=== PATIENT | female | born 1965 | race African-American/Black ===

== ENCOUNTER 2017-04-07 19:32 | Emergency (ER) | payer SELFPAY | END 2017-04-07 20:13 | disposition left against medical advice (07) | LOC: ERS 19:32 | DX: Z53.21 Procedure and treatment not carried out due to patient leaving prior to being seen by health care provider (principal) ==

== ENCOUNTER 2019-03-20 18:53 | Emergency (ER) | payer SELFPAY ==
--- NOTE | 2019-03-20 19:58 | RAD ---
PA AND LATERAL CHEST: 03/20/19 HISTORY: Cough. COMPARISON: 02/27/15 study. The heart size is borderline. Aorta is tortuous. The lungs are clear of infiltrates. There are arthri tic changes of the spine. IMPRESSION: No active intrathoracic disease. POS: [facility]
== END 2019-03-20 20:33 | disposition home or self-care (01) ==
LOC: ERS 18:53
DX: J06.9 Acute upper respiratory infection, unspecified (principal); H65.91 Unspecified nonsuppurative otitis media, right ear; I10 Essential (primary) hypertension; E11.9 Type 2 diabetes mellitus without complications; Z87.891 Personal history of nicotine dependence; Z79.899 Other long term (current) drug therapy; Z79.84 Long term (current) use of oral hypoglycemic drugs; Z79.2 Long term (current) use of antibiotics
CPT/HCPCS: 71046; 94640; J7620

== ENCOUNTER 2021-09-23 22:32 | Emergency (ER) | payer SELFPAY ==
[2021-09-23] MEDS ORDERED: Meclizine HCl 25 MG TAB ONE (23:18)
[2021-09-23] MEDS ORDERED: Acetaminophen 500 MG TAB ONE (23:18)
[2021-09-23] MEDS ORDERED: Ketorolac Tromethamine 30 MG/ML VIAL ONE (23:47)
[2021-09-24] MEDS ORDERED: cloNIDine 0.1 MG TAB ONE
== END 2021-09-24 00:34 | disposition home or self-care (01) ==
LOC: ERS 22:32
DX: R42 Dizziness and giddiness (principal); R51.9 Headache, unspecified; I10 Essential (primary) hypertension; E11.9 Type 2 diabetes mellitus without complications; F17.210 Nicotine dependence, cigarettes, uncomplicated; Z79.899 Other long term (current) drug therapy; Z79.84 Long term (current) use of oral hypoglycemic drugs
CPT/HCPCS: 36416; 96372; 99284; J1885

== ENCOUNTER 2022-06-05 18:16 | Emergency (ER) | payer SELFPAY ==
[2022-06-05] MEDS ORDERED: cloNIDine 0.1 MG TAB ONE (19:13)
[2022-06-05 19:38] LABS: #Basophils 0.1 thou/uL (0.0-0.2); #Eosinphils 0.1 thou/uL (0.0-0.7); #Lymphocytes 2.6 thou/uL (1.20-3.40); #Monocytes 0.5 thou/uL (0.11-0.59); %Basophils 0.8 % (0.0-1.0); %Eosinophils 1.3 % (0.0-10.0); %Monocytes 4.5 % (0.0-10.0); %Neutrophils 68.3 % (42.0-75.0); Hemoglobin 13.3 g/dL (12.0-16.0); Mean Corpuscular HGB CONC 33.1 g/dL (32.0-36.0); Mean Corpuscular Hemoglobin 30.1 pg (27.0-31.0); Mean Corpuscular Volume 90.9 fl (78.0-98.0); Mean Platelet Volume 8.5 fL (7.4-10.4); Platelet Count 240 10x3/uL (130-400); RBC Distribution Width 13.7 % (11.5-14.5); Red Blood Cell (RBC) Count 4.43 mill/uL (4.20-5.40); White Blood Cell (WBC) Count 10.2 10x3/uL (4.8-10.8)
[2022-06-05 19:59] LABS: ALT (SGPT) 9 U/L (8-55); AST (SGOT) 11 U/L (5-34); Albumin 4.2 g/dL (3.5-5.0); Alkaline Phosphatase 95 U/L (40-110); Anion Gap 14 mmol/L (10-20); BUN (Urea Nitrogen) 21 mg/dL (9.8-20.1); Bilirubin, Total 0.2 mg/dL (0.2-1.2); Calc. Creatinine Clearance 0 mL/min (70-130); Calcium 9.2 mg/dL (7.8-10.44); Carbon Dioxide 26 mmol/L (22-29); Chloride 100 mmol/L (98-107); Estimated GFR 67; Globulin 3.6 g/dL (2.4-3.5); Glucose 86 mg/dL (70-105); Potassium 3.6 mmol/L (3.5-5.1); Protein, Total 7.8 g/dL (6.0-8.3); Sodium 136 mmol/L (136-145)
== END 2022-06-05 21:06 | disposition home or self-care (01) ==
LOC: ERS 18:16
DX: R20.2 Paresthesia of skin (principal); I10 Essential (primary) hypertension; E11.9 Type 2 diabetes mellitus without complications; Z79.84 Long term (current) use of oral hypoglycemic drugs; Z79.899 Other long term (current) drug therapy
CPT/HCPCS: 36415; 70450; 71045; 80053; 84484; 85025; 93005

== ENCOUNTER 2023-02-11 10:08 | Emergency (ER) | payer SELFPAY ==
[2023-02-11 11:41] LABS: SARS-CoV-2 NAA Rapid Test Not Detected (NotDetected)
== END 2023-02-11 11:54 | disposition home or self-care (01) ==
LOC: ERS 10:08
DX: J20.9 Acute bronchitis, unspecified (principal); E11.9 Type 2 diabetes mellitus without complications; I10 Essential (primary) hypertension; F17.210 Nicotine dependence, cigarettes, uncomplicated; Z20.822 Contact with and (suspected) exposure to COVID-19
CPT/HCPCS: 71045

== ENCOUNTER 2025-01-01 21:59 | Emergency (ER) | payer OTHER ==
[~2025-01-01 21:59] MED LIST: Iopamidol 370 76% 100 ML VIAL ONE
[2025-01-01] MEDS ORDERED: Ketorolac Tromethamine 30 MG (1 mL) VIAL ONE (22:17)
[2025-01-01] MEDS ORDERED: Ondansetron PF 4 MG/2 ML Vial ONE (22:18)
[2025-01-01 22:33] LABS: #Basophils 0.04 10x3/uL (0.0-0.2); #Eosinophils 0.04 10x3/uL (0.0-0.7); #Monocytes 0.35 10x3/uL (0.11-0.59); #Neutrophils 9.51 10x3/uL (1.40-6.50); %Basophils 0.3 % (0.0-1.0); %Eosinophils 0.3 % (0.0-10.0); %Lymphocytes 13.8 % (21.0-51.0); %Monocytes 3.0 % (0.0-10.0); %Neutrophils 82.3 % (42.0-75.0); Hematocrit 38.4 % (36.0-47.0); Hemoglobin 12.4 g/dL (12.0-16.0); Mean Corpuscular Hemoglobin 27.9 pg (27.0-31.0); Mean Corpuscular Volume 86.3 fL (78.0-98.0); Platelet Count 263 10x3/uL (130-400); Red Blood Cell (RBC) Count 4.45 mill/uL (4.20-5.40); White Blood Cell (WBC) Count 11.57 10x3/uL (4.8-10.8)
[2025-01-01 22:57] LABS: ALT (SGPT) 8 U/L (Less than 34); AST (SGOT) 16 U/L (11-34); Albumin 3.9 g/dL (3.1-4.5); Alkaline Phosphatase 90 U/L (40-110); Anion Gap 18 mmol/L (10-20); BUN (Urea Nitrogen) 19 mg/dL (9.8-20.1); Bilirubin, Total 0.3 mg/dL (0.3-1.2); CK (CPK) 100 U/L (29-168); Calc. Creatinine Clearance 0 mL/min (70-130); Calcium 9.7 mg/dL (7.8-10.44); Carbon Dioxide 29 mmol/L (22-29); Chloride 95 mmol/L (98-107); Globulin 4.1 g/dL (2.4-3.5); Glucose 208 mg/dL (70-105); Lipase 13 U/L (8-78); Magnesium 1.6 mg/dL (1.6-2.6); Potassium 3.4 mmol/L (3.5-5.1); Sodium 139 mmol/L (136-145)
[2025-01-02] MEDS ORDERED: Metoclopramide HCl 10 MG (2 mL) VIAL ONE
[2025-01-02] MEDS ORDERED: diphenhydrAMINE 50 MG/ML VIAL ONE
[2025-01-02 02:02] LABS: Leukocyte Negative Leu/uL (Negative); Specific Gravity, Urine 1.005 (1.002-1.036)
[2025-01-02 02:03] LABS: CAUTI Indications for Culture Acute Hematuria; Glucose, Urine (Dipstick) Negative (Negative); Protein, Urine (Dipstick) Trace mg/dL (Neg-Trace); RBC/HPF 0-3 HPF (0-3); WBC/HPF 0-3 HPF (0-3)
[2025-01-02 02:04] LABS: Urine Culture Reflex No No
== END 2025-01-02 02:36 | disposition home or self-care (01) ==
LOC: ERS 21:59
DX: K52.9 Noninfective gastroenteritis and colitis, unspecified (principal); E11.9 Type 2 diabetes mellitus without complications; I10 Essential (primary) hypertension; F17.210 Nicotine dependence, cigarettes, uncomplicated; Z79.899 Other long term (current) drug therapy; Z79.84 Long term (current) use of oral hypoglycemic drugs
CPT/HCPCS: 74177; 80053; 81001; 82550; 83605; 83690; 83735; 85025; 96361; 96374; 96375; J1200; J1885; J2765; J3010; Q9967

== ENCOUNTER 2025-02-20 11:07 | Inpatient (IN) | payer OTHER ==
[2025-02-20 12:11] LABS: #Basophils 0.03 10x3/uL (0.0-0.2); #Eosinophils 0.22 10x3/uL (0.0-0.7); #Monocytes 0.38 10x3/uL (0.11-0.59); #Neutrophils 5.77 10x3/uL (1.40-6.50); %Basophils 0.4 % (0.0-1.0); %Eosinophils 2.6 % (0.0-10.0); %Lymphocytes 24.2 % (21.0-51.0); %Monocytes 4.5 % (0.0-10.0); %Neutrophils 67.9 % (42.0-75.0); Hematocrit 42.5 % (36.0-47.0); Hemoglobin 13.2 g/dL (12.0-16.0); Mean Corpuscular Hemoglobin 27.4 pg (27.0-31.0); Mean Corpuscular Volume 88.2 fL (78.0-98.0); Platelet Count 260 10x3/uL (130-400); Red Blood Cell (RBC) Count 4.82 mill/uL (4.20-5.40); White Blood Cell (WBC) Count 8.48 10x3/uL (4.8-10.8)
[2025-02-20 12:26] LABS: ALT (SGPT) 11 U/L (Less than 34); AST (SGOT) 14 U/L (11-34); Albumin 3.6 g/dL (3.1-4.5); Alkaline Phosphatase 90 U/L (40-110); Anion Gap 7 mmol/L (10-20); BUN (Urea Nitrogen) 16 mg/dL (9.8-20.1); Bilirubin, Total 0.2 mg/dL (0.3-1.2); Calc. Creatinine Clearance 0 mL/min (70-130); Calcium 9.1 mg/dL (7.8-10.44); Carbon Dioxide 38 mmol/L (22-29); Chloride 95 mmol/L (98-107); Globulin 3.6 g/dL (2.4-3.5); Glucose 181 mg/dL (70-105); Potassium 4.0 mmol/L (3.5-5.1); Sodium 136 mmol/L (136-145)
[2025-02-20] MEDS ORDERED: Aspirin Chewable 81 MG TAB ONE (13:54)
[2025-02-20] MEDS ORDERED: Ondansetron PF 4 MG/2 ML Vial IVP PRN (14:13)
[2025-02-20] MEDS ORDERED: Melatonin 3 MG TAB PO PRN (14:13)
[2025-02-20] MEDS ORDERED: Senokot S 8.6-50 MG TAB PO PRN (14:13)
[2025-02-20] MEDS ORDERED: Iopamidol-370 76% 500 ML MDV (1 ML CHARGE) ONE (15:13)
[2025-02-20] MEDS ORDERED: Glucagon 1 MG/ML KIT IM PRN (17:46)
[2025-02-20] MEDS ORDERED: Dextrose 50% Abboject 50 ML SYRINGE SLOW IVP PRN (17:46)
[2025-02-20] MEDS: Benzonatate 100 MG CAP PO PRN (20:49)
[2025-02-20 22:17] VITALS: BMI 35.6
[2025-02-21] MEDS: hydrALAZINE 20 MG/ML VIAL SLOW IVP PRN (01:29)
[2025-02-21 03:25] LABS: #Basophils 0.03 10x3/uL (0.0-0.2); #Eosinophils 0.27 10x3/uL (0.0-0.7); #Monocytes 0.45 10x3/uL (0.11-0.59); #Neutrophils 6.98 10x3/uL (1.40-6.50); %Basophils 0.3 % (0.0-1.0); %Eosinophils 2.7 % (0.0-10.0); %Lymphocytes 22.9 % (21.0-51.0); %Monocytes 4.5 % (0.0-10.0); %Neutrophils 69.3 % (42.0-75.0); Hematocrit 37.1 % (36.0-47.0); Hemoglobin 12.0 g/dL (12.0-16.0); Mean Corpuscular Hemoglobin 28.0 pg (27.0-31.0); Mean Corpuscular Volume 86.5 fL (78.0-98.0); Platelet Count 256 10x3/uL (130-400); Red Blood Cell (RBC) Count 4.29 mill/uL (4.20-5.40); White Blood Cell (WBC) Count 10.07 10x3/uL (4.8-10.8)
[2025-02-21] MEDS ORDERED: PHOS-NAK 1 PKT PACK PO PRN (03:30)
[2025-02-21] MEDS ORDERED: Potassium Chloride 20 MEQ in Premix 1 BAG IVPB PRN (03:30)
[2025-02-21] MEDS ORDERED: Electrolyte Replacement Protocol 1 EACH FS SCH (03:30)
[2025-02-21 03:44] LABS: Anion Gap 15 mmol/L (10-20); BUN (Urea Nitrogen) 19 mg/dL (9.8-20.1); Calc. Creatinine Clearance 99 mL/min (70-130); Calcium 8.7 mg/dL (7.8-10.44); Carbon Dioxide 27 mmol/L (22-29); Cardiac Risk 5.4 (Less than 4.5); Chloride 98 mmol/L (98-107); Cholesterol 225 mg/dl (< 200 Desired); Glucose 165 mg/dL (70-105); HDL Cholesterol 42 mg/dL (>60 Neg Risk); LDL Cholesterol, Calculated 144 mg/dL; Magnesium 1.7 mg/dL (1.6-2.6); Potassium 3.4 mmol/L (3.5-5.1); Sodium 137 mmol/L (136-145); Triglycerides 195 mg/dL (Less than 150)
[2025-02-21 09:33] LABS: Potassium 3.7 mmol/L (3.5-5.1)
[2025-02-21] MEDS: Aspirin 81 mg Enteric Coated Tablet PO SCH (09:41)
[2025-02-21] MEDS: Magnesium 2 GM/50 ML(in water) 2 GM in Premix 1 BAG IVPB PRN (09:42)
[2025-02-21] MEDS: GUAIFENESIN SF SOLN 200 MG/10 ML UDCUP PO PRN (13:11)
[2025-02-21 14:32] LABS: Magnesium 2.3 mg/dL (1.6-2.6)
[2025-02-22 04:30] LABS: #Basophils Less than 0.03 10x3/uL (0.0-0.2); #Eosinophils 0.19 10x3/uL (0.0-0.7); #Monocytes 0.47 10x3/uL (0.11-0.59); #Neutrophils 7.22 10x3/uL (1.40-6.50); %Basophils 0.1 % (0.0-1.0); %Eosinophils 1.9 % (0.0-10.0); %Lymphocytes 20.1 % (21.0-51.0); %Monocytes 4.7 % (0.0-10.0); %Neutrophils 72.8 % (42.0-75.0); Hematocrit 36.3 % (36.0-47.0); Hemoglobin 11.7 g/dL (12.0-16.0); Mean Corpuscular Hemoglobin 28.0 pg (27.0-31.0); Mean Corpuscular Volume 86.8 fL (78.0-98.0); Platelet Count 233 10x3/uL (130-400); Red Blood Cell (RBC) Count 4.18 mill/uL (4.20-5.40); White Blood Cell (WBC) Count 9.93 10x3/uL (4.8-10.8)
[2025-02-22 04:46] LABS: ALT (SGPT) 8 U/L (Less than 34); AST (SGOT) 17 U/L (11-34); Albumin 3.5 g/dL (3.1-4.5); Alkaline Phosphatase 85 U/L (40-110); Anion Gap 16 mmol/L (10-20); BUN (Urea Nitrogen) 21 mg/dL (9.8-20.1); Bilirubin, Total 0.2 mg/dL (0.3-1.2); Calc. Creatinine Clearance 99 mL/min (70-130); Calcium 8.8 mg/dL (7.8-10.44); Carbon Dioxide 27 mmol/L (22-29); Chloride 102 mmol/L (98-107); Globulin 3.4 g/dL (2.4-3.5); Glucose 163 mg/dL (70-105); Magnesium 2.1 mg/dL (1.6-2.6); Potassium 3.6 mmol/L (3.5-5.1); Sodium 141 mmol/L (136-145)
[2025-02-22 04:47] LABS: Cardiac Risk 4.7 (Less than 4.5); Cholesterol 210.0 mg/dl (< 200 Desired); HDL Cholesterol 45.0 mg/dL (>60 Neg Risk); LDL Cholesterol, Calculated 140.0 mg/dL; Triglycerides 124.0 mg/dL (Less than 150)
[2025-02-22] MEDS: Acetaminophen 325 MG TAB PO PRN (09:10)
[2025-02-22 11:37] VITALS: TEMP 98.5
[2025-02-22 11:52] VITALS: BP 168/101
== END 2025-02-22 12:00 | disposition home or self-care (01) | DRG 64 ==
LOC: ERS 11:07 → 2SE 15:32 → OBSVTOIN 02-22 10:28
PROVIDERS: ADMIT Family Medicine; ATTEND Family Medicine
DX: I63.9 Cerebral infarction, unspecified (principal); I46.9 Cardiac arrest, cause unspecified; H53.2 Diplopia; E11.9 Type 2 diabetes mellitus without complications; I10 Essential (primary) hypertension; H53.8 Other visual disturbances; Z88.8 Allergy status to other drugs, medicaments and biological substances; Z88.2 Allergy status to sulfonamides; Z88.1 Allergy status to other antibiotic agents; R79.89 Other specified abnormal findings of blood chemistry; J45.20 Mild intermittent asthma, uncomplicated; E87.6 Hypokalemia; Z90.710 Acquired absence of both cervix and uterus; Z98.51 Tubal ligation status; Z98.891 History of uterine scar from previous surgery; Z87.891 Personal history of nicotine dependence; E78.5 Hyperlipidemia, unspecified; R00.0 Tachycardia, unspecified; R29.705 NIHSS score 5
CPT/HCPCS: 36415; 36416; 70450; 70496; 70498; 70551; 71045; 80048; 80053; 80061; 83036; 83735; 84100; 84443; 84484; 85025; 93005; 93010; 93306; 96374; 96375; 96376; G0378; J0360; J1815; J2060; J3475; Q9967